=== PATIENT | male | born 1950 | race Caucasian/White ===

== ENCOUNTER 2025-03-16 10:57 | Outpatient (CLI) | payer MEDICARE, OTHER | END 2025-03-16 10:58 | disposition home or self-care (01) | LOC: SCSMRI 10:57 | PROVIDERS: ATTEND Nurse Practitioner Family | DX: M89.9 Disorder of bone, unspecified (principal); M24.132 Other articular cartilage disorders, left wrist; M65.942 Unspecified synovitis and tenosynovitis, left hand ==